=== PATIENT | male | born 1950 | race Caucasian/White ===

== ENCOUNTER 2016-09-16 06:53 | Inpatient (IN) | payer OTHER ==
[~2016-09-16] VITALS: Ht 172.7 cm; Wt 88.7 kg
[2016-09-16] VITALS (8 sets, daily range): BP systolic 131–146; BP diastolic 68–100
--- NOTE | 2016-09-16 07:27 | ED ORDER SUMMARY ---
..... Patient: MATTI NAILS OrderSheet [facility] VisitID: [id number] [place] [address] 66y, M Registration Date/Time: 09/16/2016 ORDER SHEET Weight: 88.9 kg (stated) Allergies: No Known Drug Allergy GENERAL ORDERS: CBC w Diff Urgent (07:12 09/16/2016 JQuivey R.N. per protocol) (Ack 7:14 [facility] ER Branch Library Clerk) (7:25 JQuivey R.N.) CMP Urgent (07:12 09/16/2016 JQuivey R.N. per protocol) (Ack 7:14 [facility] Branch Library Clerk) (7:25 JQuivey R.N.) PT with INR Urgent (07:12 09/16/2016 JQuivey R.N. per protocol) (Ack 7:14 [facility] Branch Library Clerk) (7:25 JQuivey R.N.) Amylase Urgent (07:09/16/2016 JQuivey R.N. per protocol) (Ack 7:14 [facility] Branch Library Clerk) (7:25 JQuivey R.N.) Lipase Urgent (07:12 09/16/2016 JQuivey R.N. per protocol) (Ack 7:14 [facility] Branch Library Clerk) (7:25 JQuivey R.N.) Type & Screen Urgent (07:12 09/16/2016 JQuivey R.N. per protocol) (Ack 7:14 [facility] Branch Library Clerk) (7:25 JQuivey R.N.) MEDICATION ORDERS: IV FLUIDS: IV Saline Lock (07:16 09/16/2016 JQuivey R.N. per protocol) (7:17 JQuivey R.N.) IV NS : initial bolus 1000 mL (1000 mL/hr), then none - for X1 (NOW) (07:19 09/16/2016 Raya Frausto) (Ack 7:21 JQuivey R.N.) (7:26 LSullivan R.N.) Protonix IVP 80mg 80 mg (Mix in NS 20ml over 4min) (07:27 09/16/2016 Raya Frausto) (7:38 LSullivan R.N.) Fentanyl IV 50 mcg (HIGH ALERT MEDICATION, NOW) (07:43 09/16/2016 Raya Frausto) (7:46 LSullivan R.N.) IV NS with Normal Saline 1 Liter: initial bolus none -, then 125 mL/hr for X1 (NOW) (08:32 09/16/2016 LSrejiivan R.N. verbal order read back to Raya Frausto) (8:33 LSullivan R.N.) ORDER SHEET NOTES: [Electronically signed by Paola Alvarado R.N. (10:56 09/16/2016)] [Electronically signed by Dion Wisdom Dr. (16:10 09/18/2016)] [Electronically locked/signed by Paola Alvarado R.N. (10:56 09/16/2016)]
--- NOTE | 2016-09-16 07:27 | ED NURSING NOTES ---
Clinical Report - Nurses [facility] [address] [address] 09/16/2016 6:53 Patient: MATTI NAILS TRIAGE Triage time 06:59. Acuity: LEVEL 3. Chief Complaint: (Rectal bleeding). Alert. SEPSIS SCREEN: Sepsis Screen. Negative (no infection suspected/documented). YAMILETH COMA SCORE: Yamileth Coma Scale: 15- eyes open spontaneously (4); best verbal response- oriented x 4 (5); best motor response- obeys commands (6). --07:06 Boris Burks R.N. 06:59 09/16/16. BP: 182/89. HR: 78. RR: 16. O2 saturation: 98% on room air. Temp: 98.4 F (oral). Pain level now: 04/17. --07:06 Boris Burks R.N. Weight: 88.9 kg stated. Height/Length: 68 inches Per Patient. BMI: 29.8. --07:02 Boris Burks R.N. Medications Vicodin Oral 5 mg, as needed. --07:01 Boris Burks R.N. Fluticasone Furoate Nasal. --07:02 Boris Burks R.N. Lisinopril Oral (pt unsure of dose ). --07:08 Boris Burks R.N. The following entry was struck by Boris Bursk R.N., 07:08 (09/16/16) Reason - other. <<STRICKEN ENTRY-- BP medication. --07:01 Boris Burks R.N. --END STRIKE>>. Medication/allergy information source: the patient. --07:06 Boris Burks R.N. Allergies No Known Drug Allergy. --07:01 Boris Burks R.N. History Arrived by private vehicle. Historian: patient. Accompanied by spouse. Primary physician (Luis). Onset. (3 - 4 days ago). ( Patient reports having dark red rectal bleeding for the last 3-4 days, had one bloody BM yesterday then today had a large amount and states "it feels like I'm filling back up.). 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 (1/2 Vicodin). PAST MEDICAL HX: Immunizations: up-to-date. SOCIAL HX: Never smoker. Occasional alcohol use. History of drug use: marijuana. (daily). ABUSE ASSESSMENT: No report of abuse. FALL RISK ASSESSMENT: Fall risk assessment completed. No fall risk identified. NUTRITIONAL RISK ASSESSMENT: The nutritional risk assessment revealed no deficiencies. FUNCTIONAL ASSESSMENT: Functional assessment: no impairments noted. LEARNING NEEDS ASSESSMENT: The learning needs assessment revealed no barriers. SKIN INTEGRITY ASSESSMENT: Skin integrity risk assessment completed. No skin integrity risk identified. --07:06 Boris Burks R.N. PROBLEMS: Hypertension. Diabetes Mellitus. --07:02 Boris Burks R.N. ADDITIONAL SURGERIES: Colon surgery . Left leg surgery . --07:02 Boris Burks R.N. Interventions ID band on patient. To treatment room. --07:06 Boris Burks R.N. PHYSICAL ASSESSMENT 07:06. Ambulatory to room. Patient gowned. GENERAL / NEURO / PSYCH: Alert. Oriented X 4. HEENT: Mucous membranes are pink. RESPIRATORY: Respirations not labored. SKIN: Skin intact. Skin is warm and dry. Normal skin turgor. --07:06 Boris Burks R.N. NURSING PROGRESS NOTES 07:06. Head of bed elevated. Two patient identifiers checked. Call light placed in reach. Bed placed in lowest position. Brakes of bed on. Patient ready for evaluation- chart flagged. --07:06 Boris Burks R.N. 07:07 09/16/2016 Site #1 started via IV in the left antecubital space with an 20g angiocath, with aseptic technique and good blood return; one attempt. Blood drawn: rainbow set. Labeled in the presence of the patient and sent to the lab. Saline lock flushed with 10 mL saline. --07:09 Boris Burks R.N. 07:24. Care transferred and report given (Paola ASHFORD). --07:24 Boris Burks R.N. 07:26 09/16/2016 Started bag #1 1000 mL IV Fluids IV NS (Saline); at 1000 mL/hr via site #1 via IV pump. Confirmed 5 rights. --07:26 Paola Alvarado R.N. 07:26 09/16/16. BP: 149/83. HR: 79. RR: 18. O2 saturation: 99%. --07:27 Paola Alvarado R.N. 07:37 09/16/2016 PROTONIX (Pantoprazole Sodium) IVP 80 mg given over 5 minute(s) via site #1. Confirmed 5 rights. IV patency established. IV site checked: no pain, redness, or swelling. IV flushed thoroughly pre- and post-medication administration. --07:38 Paola Alvarado R.N. 07:46 09/16/2016 Fentanyl IVP 50 mcg given over 2 minute(s) via site #1. Sedative warning given to the patient and patient's family. --07:46 Paola Alvarado R.N. 07:48 09/16/16. BP: 136/82. HR: 73. RR: 18. O2 saturation: 99%. --07:48 Paola Alvarado R.N. 08:31 09/16/2016 IV Fluids IV NS Discontinued: bag #1 completed. Total amount infused: 1000 mL. --08:31 Paola Alvarado R.N. 08:33 09/16/2016 Started bag #2 1000 mL IV Fluids IV NS (Saline); at 125 mL/hr via site #1 via IV pump. --08:33 Paola Alvarado R.N. ( Dr Guzman and Dr Meadows have seen pt here. Pt instructed on surgical procedure.). --09:15 Paola Alvarado R.N. 09:14 09/16/16. BP: 139/77. HR: 71. RR: 18. O2 saturation: 99%. --09:15 Paola Alvarado R.N. 09:00 09/16/16. BP: 135/79. HR: 70. O2 saturation: 99%. --09:16 Alvarado, Paola, R.N. DISPOSITION / DISCHARGE Report was given to a nurse via a phone call. Report included patient's care, treatment, medications, reviewed medication reconcilliation, and condition (including any recent changes or anticipated changes). All questions were answered. Report was acknowledged. (Pt will remain here in the ED, then will go to surgery, then to ICU). --09:18 Paola Alvarado R.N. 09:47 09/16/16. ( Pre op teaching done, pt and present. Pt voided in bathroom.). --09:47 Paola Alvarado R.N. 09:46 09/16/16. BP: 149/67. HR: 72. RR: 18. O2 saturation: 99%. Temp: 98.1 F. Pain level now: 04/17. --09:47 Paola Alvarado R.N. 09:47 09/16/16. Admitted to the Critical Care Unit via Surgery. --09:47 Paola Alvarado R.N. Locked/Released at 09/16/2016 10:56 by Paola Alvarado R.N.
--- NOTE | 2016-09-16 07:27 | ED ORDER SUMMARY ---
..... Patient: MATTI NAILS OrderSheet [facility] VisitID: [id number] [place] [address] 66y, M Registration Date/Time: 09/16/2016 ORDER SHEET Weight: 88.9 kg (stated) Allergies: No Known Drug Allergy GENERAL ORDERS: CBC w Diff Urgent (07:12 09/16/2016 JQuivey R.N. per protocol) (Ack 7:14 [facility] ER Ostomy Nurse) (7:25 JQuivey R.N.) CMP Urgent (07:12 09/16/2016 JQuivey R.N. per protocol) (Ack 7:14 [facility] ER Ostomy Nurse) (7:25 JQuivey R.N.) PT with INR Urgent (07:12 09/16/2016 JQuivey R.N. per protocol) (Ack 7:14 [facility] ER Ostomy Nurse) (7:25 JQuivey R.N.) Amylase Urgent (07:09/16/2016 JQuivey R.N. per protocol) (Ack 7:14 [facility] ER Ostomy Nurse) (7:25 JQuivey R.N.) Lipase Urgent (07:12 09/16/2016 JQuivey R.N. per protocol) (Ack 7:14 [facility] ER Ostomy Nurse) (7:25 JQuivey R.N.) Type & Screen Urgent (07:12 09/16/2016 JQuivey R.N. per protocol) (Ack 7:14 [facility]ty ER Ostomy Nurse) (7:25 JQuivey R.N.) MEDICATION ORDERS: IV FLUIDS: IV Saline Lock (07:16 09/16/2016 JQuivey R.N. per protocol) (7:17 JQuivey R.N.) IV NS : initial bolus 1000 mL (1000 mL/hr), then none - for X1 (NOW) (07:19 09/16/2016 Raya Frausto) (Ack 7:21 JQuivey R.N.) (7:26 LSullivan R.N.) Protonix IVP 80mg 80 mg (Mix in NS 20ml over 4min) (07:27 09/16/2016 Raya Frausto) (7:38 LSullivan R.N.) Fentanyl IV 50 mcg (HIGH ALERT MEDICATION, NOW) (07:43 09/16/2016 Raya Frausto) (7:46 LSullivan R.N.) IV NS with Normal Saline 1 Liter: initial bolus none -, then 125 mL/hr for X1 (NOW) (08:32 09/16/2016 LSrejiivan R.N. verbal order read back to Raya Frausto) (8:33 LSullivan R.N.) ORDER SHEET NOTES: [Electronically signed by Paola Alvarado R.N. (10:56 09/16/2016)] [Electronically signed by Dion Wisdom Dr. (16:10 09/18/2016)] [Electronically locked/signed by Paola Alvarado R.N. (10:56 09/16/2016)]
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
--- NOTE | 2016-09-16 10:48 | Operative Report ---
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 endotracheal Indications: 66-year-old male with history of nonsteroidal anti-inflammatory drug use, who presented to the emergency room with a maroon stool. Last colonoscopy use approximately 8-9 years ago was noted to have diverticulosis. Patient is scheduled for upper GI endoscopy, possible colonoscopy emergently. FINDINGS: Normal-appearing duodenal tibial vessel. No evidence of old blood or fresh blood. Distal portion of lesser curvature had 3 superficial ulcers containing old blood within the superficial crater, nonbleeding. The remaining mucosal pattern appeared grossly normal. The GE junction was roughly 42 cm from the dental incisors. The esophagus appeared grossly normal. Surgical Technique: Patient brought to the operating room placed in the left lateral decubitus position. Patient was administered total intravenous anesthesia.. Once anesthesia had taken affect, the posterior pharynx was sprayed using Cetacaine spray. An Olympus fiberoptic video upper GI endoscope was passed in to the patient's posterior pharynx. The esophagus intubated under direct visualization. The scope passed easily down the esophagus through the EG junction which was located approximately at 42 cm from the dental incisors. The scope passed easily through the EG junction into the gastric lumen and eventually into the second third portion of duodenum. On withdrawing the scope, the afore mentioned findings were noted. The scope was withdrawn into the gastric lumen and retroflexed. Good view of the cardia, fundus, EG junction from below, and greater and lesser curvature. Multiple random biopsies were obtained of the gastric mucosa to rule out H. pylori The scope was then withdrawn. Close inspection the esophagus was performed. The scope was completely gone. Patient tolerated procedure well. Patient was transferred to the recovery room in stable condition. There were no intraoperative or anesthetic complications.
--- NOTE | 2016-09-16 13:16 | HISTORY AND PHYSICAL ---
ADMITTED: 09/16/2016 CHIEF COMPLAINT: 1. Rectal bleeding HISTORY OF PRESENT ILLNESS: This is a 66-year-old white male who noticed bleeding from the rectum for 3 days. The bleeding was fresh red blood, minimum to moderate amount, but then turned to black stool today. It was usually once a day. The patient also felt tired and weak. No nausea, no vomiting, no abdominal pain, but some discomfort in abdomen. The patient had a benign mass removed from his colon 14 years ago; otherwise, he had no symptoms. MEDICAL/SURGICAL HISTORY: Past medical history: Remarkable for diabetes mellitus , diet controlled, hypertension, and benign mass in the colon. Surgical history is remarkable for colon surgery and knee arthroscopy. Hospitalizations: Last one was 14 years ago for the colon surgery. MEDICATIONS: 1. Lisinopril 10 mg daily, but no medication for diabetes. ALLERGIES: 1. NO KNOWN DRUG ALLERGIES. SOCIAL HISTORY: The patient is , has 1 kid, lives with his . Drinks alcohol on a social basis and smokes only marijuana and no cigarette smoking. FAMILY HISTORY: Remarkable for diabetes mellitus. REVIEW OF SYSTEMS: Has been losing weight recently. Some hearing loss. No difficulty with vision. No runny nose or congestion or cough or sore throat. No shortness of breath, chest pain, or palpitations. GI symptoms as described above. No dysuria or frequency or incontinence. Complains of generalized arthralgia. No headaches. No dizziness. No tingling, no numbness. No localized weakness. No syncope. PHYSICAL EXAMINATION: VITAL SIGNS: Blood pressure 180/89, heart rate is 78, respirations 16, oxygen is 98% on room air, temperature is 98.4 degrees. GENERAL APPEARANCE: Well developed, well nourished, good body build, no acute distress at this moment. HEENT: Ears: Normal tympanic membranes. Mouth: Normal hypopharynx, no exudation, no erythema. Nose: Normal mucosa. NECK: Supple. No JVD. No carotid bruit. No palpable mass. SKIN: Warm and dry with good turgor. LUNGS: Clear to auscultation. No rhonchi or wheezing or crackles. HEART: Regular S1, S2. No murmur. No S3. ABDOMEN: Soft, nontender. Bowel sounds are positive. EXTREMITIES: No edema. Good peripheral pulses. No signs of DVT or cyanosis. MUSCULOSKELETAL: Grossly within normal limits. NEUROLOGIC: Alert and oriented x3. Cranial nerves are grossly intact. No motor deficits. Pupils are equal, round, reactive to light. Extraocular movements are intact. No nystagmus. No cerebellar signs. Deep tendon reflexes are bilateral and symmetric. LAB/IMAGING: White blood count is 9.3, hemoglobin is 14.6, hematocrit is 42.8, and platelet count is 238. INR is 0.9, glucose is 332, BUN is 21, creatinine is 1.3, sodium is 135, potassium 3.9, chloride is 100, CO2 is 28. Liver enzymes unremarkable. Lipase is 692, amylase is 113. IMPRESSION: 1. Rectal bleeding, possibly lower gastrointestinal bleed, but could be upper gastrointestinal bleed too 2. Hypertension 3. Diabetes, apparently diet controlled PLAN: The patient will be admitted to ICU, and surgical consultation with Dr. Guzman has already been obtained through the emergency, so he is aware of the patient. Will monitor the hemoglobin and hematocrit. I will order hemoglobin A1c and monitor blood sugar and also add a low-dose sliding scale, and also we will start IV hydration and type and cross and hold 2 units of blood.
--- NOTE | 2016-09-16 13:19 | Progress Note ---
Subjective General ADVANCED CARE PLAN History of Present Illness This is a 66-year-old white male who noticed bleeding from the rectum for 3 days. The bleeding was fresh red blood, minimum to moderate amount, but then turned to black stool today. It was usually once a day. The patient also felt tired and weak. No nausea, no vomiting, no abdominal pain, but some discomfort in abdomen. The patient had a benign mass removed from his colon 14 years ago; otherwise, he had no symptoms. A discussion was undertaken with the patient regarding previous advance care arrangements/decisions. The following advanced directives were noted by the patient and discussed with me at the time of admission. ADVANCED DIRECTIVES: 1. Living well: Yes 2. POLST: No 3. CODE STATUS: Full Code 4. 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 Donor card: No The patient has expressed interest in pursuing full resuscitative efforts at the time of cardiopulmonary arrest. The patient has been placed on a FULL CODE STATUS. The patient's wishes were documented in the chart and orders regarding the patient's wishes entered into the [facility] CPOE system. The "Advance Care Plan Document" was not distributed to patient to discuss with his family. Less than 30 minutes was spent in performing the above tasks and documentation of the patient's advanced care plan.
[2016-09-16] MEDS ORDERED: COZAAR50 MG PO (15:42)
[2016-09-16] MEDS ORDERED: LISINOPRIL10 MG PO (15:42)
[2016-09-16] MEDS ORDERED: VICODIN EQUIVAL1 TAB PO (15:43)
[2016-09-16] MEDS ORDERED: AMBIEN5 MG PO (15:44)
[2016-09-16] MEDS ORDERED: [UNRECOGNIZED DRUG - OTHER] (15:47)
[2016-09-16] MEDS ORDERED: METFORMIN HCL500 MG PO (15:49)
[2016-09-17 02:12] VITALS: BP 133/60
[2016-09-17 06:15] VITALS: BP 146/81
[2016-09-17] MEDS ORDERED: CARAFATE EQUIVAL1 GM PO (06:39)
[2016-09-17] MEDS ORDERED: PROTONIX40 MG PO (06:39)
--- NOTE | 2016-09-17 07:14 | DISCHARGE SUMMARY ---
ADMIT DATE: 09/16/2016 DISCHARGE DATE: 09/17/2016 DISCHARGE DIAGNOSES: 1. Bleeding peptic ulcer disease but no active bleeding during the scope 2. Hypertension 3. Diabetes mellitus BRIEF HISTORY: This is a 66-year-old white male who noticed bleeding from the rectum, started 3 days prior to admission. It was fresh red blood to moderate amount and turned to black finally on the date of admission. The patient also felt tired and weak, had no nausea, no vomiting, no abdominal pain. The patient has some discomfort in abdomen. The patient had a colectomy 14 years ago for the benign mass removal, otherwise was doing fine. HOSPITAL COURSE: The patient was admitted to hospital and was put on IV hydration and monitoring hemoglobin and hematocrit. The patient went to the endoscopy almost right away and was found to have nonbleeding peptic ulcer disease, which was inactive, so the patient was kept for one more night to monitor and ready to be discharged home. Today, he is doing fine. Did not have any bowel movement. No nausea, no vomiting, no abdominal pain, feeling great and strong and ready to go home. PHYSICAL EXAMINATION: VITAL SIGNS: Temperature is 98.2, pulse is 62, respirations 20, blood pressure 146/81, and oxygen saturation 98% room air. LUNGS: Clear to auscultation. No rhonchi or wheezing or crackles. HEART: Regular S1 and S2. No murmur. No S3. ABDOMEN: Soft, nontender. Bowel sounds are positive. EXTREMITIES: No edema. LAB/IMAGING: White blood count 6.3, hemoglobin 11.3, one gram less since yesterday, hematocrit 33.4, and platelet count is 183. Hemoglobin A1c is 10.3. Sodium is 142, potassium is 3.8, chloride is 108, CO2 is 28, BUN is 16, creatinine 1.1, glucose 182. Calcium is 8. Lipase is 438, down from 692. DISCHARGE INSTRUCTIONS/MEDICATIONS: The patient will be discharged home to follow up with his primary care physician, Dr. Bernardo, within the week. We will put the patient on Protonix 40 mg twice a day, Carafate 1 gram 4 times a day and also we will start on the metformin 500 mg twice a day since the patient was not taking anything for the diabetes. Also we will continue lisinopril 10 mg daily. The patient will need a CBC checked in the outpatient visit with Dr. Bernardo to monitor blood level, hemoglobin.
--- NOTE | 2016-09-18 16:10 | ED DISCHARGE INSTRUCTIONS ---
Patient: MATTI NAILS General Instructions [facility] VisitID: [id number] [address] [place] [address] 66y, M Registration Date/Time: 09/16/2016 acute major GI bleed. (Electronically signed by Dion Wisdom Dr. 09/18/2016 16:10)
--- NOTE | 2016-09-18 16:10 | ED MED RECONCILIATION SUMMARY ---
Patient: MATTI NAILS Medication Reconciliation Report [facility] VisitID: [id number] [address] [place] [address] 66y, M Registration Date/Time: 09/16/2016 Weight: 88.9 kg Height/Length: 68 in. BMI: 29.8 ALLERGIES: No Known Drug Allergy The patient's Home Medications are listed below: THE FOLLOWING MEDICATIONS NEED TO BE RECONCILED: Fluticasone Furoate Nasal Lisinopril Oral, pt unsure of dose Vicodin Oral 5 mg The source(s) of the original Home Medication information: patient The following Medications were given to the patient in the Emergency Department: IV NS IV Fluids bolus 0, then 1000 mL/hr, administered: 09/16/2016 7:26:00 AM PROTONIX [IVP] IVP 80 mg, administered: 09/16/2016 7:37:00 AM Fentanyl [IVP] IVP 50 mcg, administered: 09/16/2016 7:46:00 AM IV NS IV Fluids bolus 0, then 125 mL/hr, administered: 09/16/2016 8:33:00 AM The following Medications were prescribed to the patient: None.
--- NOTE | 2016-09-18 16:10 | ED CLINICAL REPORT ---
Clinical Report - Physicians/Mid Levels [facility] [address] [place] [address] 09/16/2016 6:53 Patient: MATTI NAILS Time Seen: 0700. Arrived- By private vehicle. Historian- patient. HISTORY OF PRESENT ILLNESS Chief Complaint: RECTAL BLEEDING. This started past 3 days, has been moderate and is still present and worsening. It was abrupt in onset and has been constant but is not gone now. The patient has had rectal bleeding. (hx of recent NSAID use from back pain. Reports he injured it while playing golf. reports no significant pain. no blood thinners or hx of bleeding. states he is due for another colonoscopy soon. says he had a colon mass removed many years ago that turned out to be non-cancerous). No recent travel. No known contact with a sick individual. Similar symptoms previously: None. Recent medical care: Not recently seen/assessed. REVIEW OF SYSTEMS No skin rash. All systems otherwise negative, except as recorded above. PAST HISTORY See nurses notes. Medications: Lisinopril Oral (pt unsure of dose ). Fluticasone Furoate Nasal. Vicodin Oral 5 mg, as needed. Allergies: No Known Drug Allergy. SOCIAL HISTORY Smoker- current status unknown. Occasional alcohol use. History of drug use: marijuana. No recent travel. ADDITIONAL NOTES The nursing notes have been reviewed. PHYSICAL EXAM Vital Signs: 09/16/2016 06:59 BP: 182/89. HR: 78. RR: 16. O2 saturation: 98%. Temp: 98.4 F. Pain level now: 04/17. Blood pressure normal. Oxygen saturation normal. Appearance: Alert. Oriented X3. No acute distress. Eyes: Pupils equal, round and reactive to light. Eyes normal inspection. ENT: Ears normal. Nose normal. Pharynx normal. CVS: Normal heart rate and rhythm. Heart sounds normal. Pulses normal. Respiratory: No respiratory distress. Breath sounds normal. No rales, rhonchi or wheezes. Abdomen: Soft and nontender. Bowel sounds normal. No mass. Rectal: Maroon-colored, bloody stool. Rectal exam nontender. (no masses. non-tender. grossly heme positive). Skin: Skin warm and dry. Normal skin color. No rash. Normal skin turgor. Extremities: Extremities exhibit normal ROM. No lower extremity edema. LABS, X-RAYS, AND EKG Laboratory Tests: CBC w Diff: (FLAKITO: 09/16/2016 07:10) ( [facility] 09/16/2016 07:27) Final results Test Result Flag Units (Reference) WHITE BLOOD COUNT 9.3 K/uL (4.5-11.5) RED BLOOD COUNT 4.82 M/uL (4.50-5.90) HEMOGLOBIN 14.6 gm/dL (13.5-17.5) HEMATOCRIT 42.8 % (41.0-53.0) MEAN CELL VOLUME 89 fL (80-100) MEAN CORPUSCULAR HGB 30 pg (26-34) MEAN CORPUSCULAR HGB CONC 34 g/dL (31-37) RED CELL DISTRIBUTION WIDTH 12.6 % (11.6-14.8) PLATELET COUNT 238 K/uL (150-400) NEUTROPHIL % 76.3 H % (50-75) LYMPH % 14.8 L % (25-40) MONO % 7.6 % (3-14) EOSINOPHIL % 1.1 % (0-4) BASOPHIL % 0.2 % (0-2) PT with INR: (FLAKITO: 09/16/2016 07:10) ( [facility] 09/16/2016 07:30) Final results Test Result Flag Units (Reference) INR 0.9 (0.8-1.2) Low Intensity Therapy: INR 1.5-2.0 PT range 18.5-23.1Mod.Intensity Therapy: INR 2.0-3.0 PT range 23.1-31.5High Intensity Therapy: INR 2.5-3.5 PT range 27.4-35.5High Intensity Therapy 2: INR 3.0-4.0 PT range 31.5-39.3 CMP: (FLAKITO: 09/16/2016 07:10) ( [facility] 09/16/2016 07:41) Final results Test Result Flag Units (Reference) GLUCOSE 332 H mg/dL (70-110) BUN 21 H mg/dL (7-18) CREATININE 1.3 mg/dL (0.6-1.3) Estimated GFR 58.88 mL/min Estimated GFR- >60 mL/min Note: Persistent reduction over 3 months in eGFR<60 mL/min/1.73 m2 defines CKD. Patients with eGFR values>=60 mL/min/1.73 m2 may also have CKD if evidence ofpersistent proteinuria. Additional information may be foundat www.kidney.org. SODIUM 135 L mmol/L (136-145) POTASSIUM 3.9 mmol/L (3.5-5.1) CHLORIDE 100 mmol/L (98-107) CARBON DIOXIDE 28 mmol/L (21-32) CALCIUM 8.7 mg/dL (8.5-10.1) TOTAL PROTEIN 7.0 g/dL (6.4-8.2) ALBUMIN 3.6 g/dL (3.3-5.0) BILIRUBIN, TOTAL 0.5 mg/dL (0.0-1.0) ALKALINE PHOSPHATASE 75 U/L (46-116) AST (SGOT) 16 U/L (15-37) ALT (SGPT) 40 U/L (12-78) LIPASE 692 H U/L (73-393) AMYLASE 113 U/L (25-115) . PROGRESS AND PROCEDURES Course of Care: the patient is a 66-year-old male with past medical history significant for recent injury of lower back and on nonsteroidal anti-inflammatories presented for evaluation of GI bleed. While patient was being evaluated here in the emergency department, patient had stated that it feels like he was going to have another bowel movement. Patient stated that he "feels like I'm filling up again. " Because of the patient's reported large GI bleed, would be concerned for massive hemorrhage. Laboratory studies have been ordered including fluids. 2 large IVs were placed. Patient is agreeable to the treatment plan. The patient's workup was remarkable for the findings above. Hemoglobin and hematocrit are noted to be normal. However because of the patient's large amount of bleeding, patient will need to be admitted to the intensive care unit for further monitoring. Was able to witness the patient's bloody bowel movement while here in the emergency department. The toilet hadsplashes of blood on the sides as well as dark red blood in the bowl with floating clots. Discussed with the patient's his workup here in emergency department and plan of care. All questions have been answered. The patient was agreeable to the treatment and plan. Had a discussion with general surgery who will plan for a scope later on today. Also discussed cased with the hospitalist will help with the patient's admission. No further recommendations made. Patient is nothing by mouth. Patient was admitted to the intensive care area. Prior to patient's departure from the emergency department he was noted to be resting in bed and in no acute distress. Vital signs remain within normal limits. At this point in time, patient does not need to be transfused. Critical care performed (35 minutes). Time is exclusive of separately billable procedures. Time includes: direct patient care, patient reassessment, coordination of patient care, review of patient's medical records, medical consultation and documentation of patient care. Consult obtained from surgery. Disposition: Admitted to the Critical Care Unit. CLINICAL IMPRESSION acute major GI bleed. (Electronically signed by Dion Wisdom Dr. 09/18/2016 16:10)
--- NOTE | 2016-09-18 16:10 | ED MED RECONCILIATION SUMMARY ---
Patient: MATTI NAILS Medication Reconciliation Report [facility] VisitID: [id number] [address] [place] [address] 66y, M Registration Date/Time: 09/16/2016 Weight: 88.9 kg Height/Length: 68 in. BMI: 29.8 ALLERGIES: No Known Drug Allergy The patient's Home Medications are listed below: THE FOLLOWING MEDICATIONS NEED TO BE RECONCILED: Fluticasone Furoate Nasal Lisinopril Oral, pt unsure of dose Vicodin Oral 5 mg The source(s) of the original Home Medication information: patient The following Medications were given to the patient in the Emergency Department: IV NS IV Fluids bolus 0, then 1000 mL/hr, administered: 09/16/2016 7:26:00 AM PROTONIX [IVP] IVP 80 mg, administered: 09/16/2016 7:37:00 AM Fentanyl [IVP] IVP 50 mcg, administered: 09/16/2016 7:46:00 AM IV NS IV Fluids bolus 0, then 125 mL/hr, administered: 09/16/2016 8:33:00 AM The following Medications were prescribed to the patient: None.
--- NOTE | 2016-09-18 16:10 | ED MAR SUMMARY ---
..... Medication Administration Record [facility] [address] [place] [address] Patient: MATTI NAILS Visit ID: [id number] 66y, M Weight: 88.9 kg Height/Length: 68 in BMI: 29.8 ALLERGIES: No Known Drug Allergy Start 07:26 09/16/2016 Paola Alvarado R.N., Stop 08:31 09/16/2016 Paola Alvarado R.N. Medication Administered: IV NS (SALINE), Dose: IV Fluids, Rate: 1000 mL/hr, Dispensed: 1000 mL bag, Site: #1 left AC. Medication Ordered: IV NS : initial bolus 1000 mL (1000 mL/hr), then none - for X1 (NOW). Given 07:37 09/16/2016 Paola Alvarado R.N. Medication Administered: PROTONIX [IVP] (PANTOPRAZOLE SODIUM), Dose: 80 mg IVP over 5 minute(s), Site: #1 left AC. Medication Ordered: Protonix IVP 80mg 80 mg (Mix in NS 20ml over 4min). Given 07:46 09/16/2016 Paola Alvarado R.N. Medication Administered: FENTANYL [IVP], Dose: 50 mcg IVP over 2 minute(s), Site: #1 left AC. Medication Ordered: Fentanyl IV 50 mcg (HIGH ALERT MEDICATION, NOW). Start 08:33 09/16/2016 Paola Alvarado R.N. Medication Administered: IV NS (SALINE), Dose: IV Fluids, Rate: 125 mL/hr, Dispensed: 1000 mL bag, Site: #1 left AC. Medication Ordered: IV NS with Normal Saline 1 Liter: initial bolus none -, then 125 mL/hr for X1 (NOW).
--- NOTE | 2016-09-18 16:10 | ED MAR SUMMARY ---
..... Medication Administration Record [facility] [address] [place] [address] Patient: MATTI NAILS Visit ID: [id number] 66y, M Weight: 88.9 kg Height/Length: 68 in BMI: 29.8 ALLERGIES: No Known Drug Allergy Start 07:26 09/16/2016 Paola Alvarado R.N., Stop 08:31 09/16/2016 Paola Alvarado R.N. Medication Administered: IV NS (SALINE), Dose: IV Fluids, Rate: 1000 mL/hr, Dispensed: 1000 mL bag, Site: #1 left AC. Medication Ordered: IV NS : initial bolus 1000 mL (1000 mL/hr), then none - for X1 (NOW). Given 07:37 09/16/2016 Paola Alvarado R.N. Medication Administered: PROTONIX [IVP] (PANTOPRAZOLE SODIUM), Dose: 80 mg IVP over 5 minute(s), Site: #1 left AC. Medication Ordered: Protonix IVP 80mg 80 mg (Mix in NS 20ml over 4min). Given 07:46 09/16/2016 Paola Alvarado R.N. Medication Administered: FENTANYL [IVP], Dose: 50 mcg IVP over 2 minute(s), Site: #1 left AC. Medication Ordered: Fentanyl IV 50 mcg (HIGH ALERT MEDICATION, NOW). Start 08:33 09/16/2016 Paola Alvarado R.N. Medication Administered: IV NS (SALINE), Dose: IV Fluids, Rate: 125 mL/hr, Dispensed: 1000 mL bag, Site: #1 left AC. Medication Ordered: IV NS with Normal Saline 1 Liter: initial bolus none -, then 125 mL/hr for X1 (NOW).
--- NOTE | 2016-09-18 16:10 | ED DISCHARGE INSTRUCTIONS ---
Patient: MATTI NAILS General Instructions [facility] VisitID: [id number] [address] [place] [address] 66y, M Registration Date/Time: 09/16/2016 acute major GI bleed. (Electronically signed by Dion Wisdom Dr. 09/18/2016 16:10)
== END 2016-09-17 07:45 | disposition home or self-care (01) | DRG 379 ==
LOC: ED SRH 06:53 → TRANS SRH 07:48 → CC SRH 08:40
PROVIDERS: Specialist; ADMIT Student in an Organized Health Care Education/Training Program
PROC: 0DB68ZX Excision of Stomach, Via Natural or Artificial Opening Endoscopic, Diagnostic (ICD-10-PCS; principal; 2016-09-16 10:00)
DX: K25.4 Chronic or unspecified gastric ulcer with hemorrhage (principal); T39.315A Adverse effect of propionic acid derivatives, initial encounter; G89.29 Other chronic pain; M54.9 Dorsalgia, unspecified; E11.8 Type 2 diabetes mellitus with unspecified complications; I10 Essential (primary) hypertension
CPT/HCPCS: 50004; 60001; 70002; 80102; 82943; 83526; 90001; 90047; 90074; 90098; 90100; 90155; 90705; 91004; 91162; 91163; 91286; 92132; 92235; 92530; 94060; 95059